=== PATIENT | female | born 1965 | race Caucasian/White ===

== ENCOUNTER 2020-01-04 11:13 | Outpatient (CLI) | payer OTHER ==
--- NOTE | 2020-01-04 11:42 | RAD ---
Left shoulder 3 views HISTORY: Shoulder pain. FINDINGS: Glenohumeral and acromioclavicular alignment are maintained. No acute fracture, dislocation , or aggressive osseous erosions. IMPRESSION : No acute osseous abnormalities are demonstrated.
--- NOTE | 2020-01-04 11:43 | RAD ---
EXAM: 4 views of the right knee HISTORY: Knee pain COMPARISON: None FINDINGS: No knee effusion is seen. There is no evidence of acute fracture or dislocation. Mild media l femorotibial department degenerative changes are seen. No soft tissue swelling is present. IMPRESSION: Mild right knee osteoarthritis without evidence of acute osseous abnormality.
== END 2020-01-04 11:14 | disposition home or self-care (01) ==
LOC: NAV RAD 11:13
PROVIDERS: ATTEND Family Medicine
DX: M17.11 Unilateral primary osteoarthritis, right knee (principal); M22.2X1 Patellofemoral disorders, right knee; M75.102 Unspecified rotator cuff tear or rupture of left shoulder, not specified as traumatic

== ENCOUNTER 2022-12-21 12:36 | Emergency (ER) | payer OTHER, SELFPAY ==
[2022-12-21] MEDS ORDERED: Bacitracin 1 PK ONE (12:55)
[2022-12-21] MEDS ORDERED: HYDROcodone/Acetaminophen 5/325 mg Tablet ONE (13:38)
== END 2022-12-21 13:46 | disposition home or self-care (01) ==
LOC: NAV ERS 12:36
DX: S42.201A Unspecified fracture of upper end of right humerus, initial encounter for closed fracture (principal); I10 Essential (primary) hypertension; E78.5 Hyperlipidemia, unspecified; E11.9 Type 2 diabetes mellitus without complications; W01.0XXA Fall on same level from slipping, tripping and stumbling without subsequent striking against object, initial encounter; Z79.02 Long term (current) use of antithrombotics/antiplatelets; Z79.84 Long term (current) use of oral hypoglycemic drugs